=== PATIENT | male | born 1955 | race Caucasian/White ===

== ENCOUNTER 2021-03-08 11:37 | Emergency (ER) | payer MEDICARE | END 2021-03-08 20:45 | disposition short-term general hospital (02) | LOC: ER1 11:37 | DX: S32.431A Displaced fracture of anterior column [iliopubic] of right acetabulum, initial encounter for closed fracture (principal); S32.441A Displaced fracture of posterior column [ilioischial] of right acetabulum, initial encounter for closed fracture; S32.591A Other specified fracture of right pubis, initial encounter for closed fracture; I10 Essential (primary) hypertension; W01.0XXA Fall on same level from slipping, tripping and stumbling without subsequent striking against object, initial encounter; Y92.89 Other specified places as the place of occurrence of the external cause; Y99.0 Civilian activity done for income or pay | CPT/HCPCS: 72192; 73070; 73502; 73552; 96374; 96375; 99285; J2270; J2405 ==

== ENCOUNTER → 2021-04-09 | Outpatient (CLI) | payer MEDICARE ==
[2021-04-10 09:13] LABS: PREALBUMIN 27 mg/dL (10-36)
[2021-04-12 15:12] LABS: ALBUMIN 3.5 g/dL (2.9-4.4); ALPHA-1-GLOBULIN 0.2 g/dL (0.0-0.4); ALPHA-2-GLOBULIN 0.8 g/dL (0.4-1.0); GAMMA GLOBULIN 1.4 g/dL (0.4-1.8); GLOBULIN, TOTAL 3.4 g/dL (2.2-3.9); M-SPIKE Not Observed g/dL (Not Observed); PROTEIN, TOTAL, SERUM 6.9 g/dL (6.0-8.5)
== END ==
LOC: LAB 15:09
PROVIDERS: Physician Assistant Medical
DX: M81.0 Age-related osteoporosis without current pathological fracture (principal)
CPT/HCPCS: 36415; 80053; 82523; 83735; 83937; 83970; 84080; 84134; 84155; 84165

== ENCOUNTER 2021-04-29 20:13 | Emergency (ER) | payer MEDICARE ==
[2021-04-29 22:26] LABS: HEMOGLOBIN 12.8 gm/dl (14.0-17.5); RED BLOOD COUNT 4.39 M/UL (4.20-5.50); WHITE BLOOD COUNT 18.2 K/UL (4.5-11.0)
[2021-04-30] MEDS ORDERED: CEPHALEXIN500 M1 PO (00:30)
== END 2021-04-30 01:15 | disposition home or self-care (01) ==
LOC: ER1 20:13
PROVIDERS: Physician Assistant Medical
DX: N39.0 Urinary tract infection, site not specified (principal); N18.9 Chronic kidney disease, unspecified
CPT/HCPCS: 80053; 81001; 83605; 85025; 87040; 87077; 87086; 87186; 93005; 96374; 99283; J0696